=== PATIENT | female | born 1965 | race Caucasian/White ===

== ENCOUNTER 2018-06-01 21:47 | Emergency (ER) | payer SELFPAY ==
[2018-06-01] MEDS ORDERED: NORMAL SALINE 1000 ML 1,000 ML IV ONE (22:39)
[2018-06-01] MEDS ORDERED: ONDANSETRON HCL INJ/PF 4 MG/2 ML SDV IV ONE (22:47)
--- NOTE | 2018-06-01 22:48 | ER Document Report ---
ED General - General Chief Complaint: Abdominal Pain Stated Complaint: ABDOMINAL PAIN Time Seen by Provider: 06/01/18 22:22 Notes: Patient is a 53-year-old female with past medical history of anxiety, depression , who presents with multiple complaints. Patient apparently came to the emergency room and for complaint of abdominal pain but while in the lobby apparently attempted to stand up and fell to the ground. The patient and family are uncertain whether or not she has she lost consciousness. She was brought back to the emergency department due to this event. She denies any trauma was sustained during this fall. The patient is quite a tangential historian has difficulty expanding exactly what brought her to the emergency department today. She states that she was having some abdominal cramping diffusely throughout her abdomen earlier today with associated nausea but the pain is currently not present. She denies any vomiting. She is uncertain whether or not she has had similar pain in the past. Nothing improves or worsens that symptom. She denies any chest pain, shortness of breath, weakness or numbness. No headache or neck pain. No fever or constitutional symptoms. She states that she did not sleep at all last night, only ate breakfast this morning. She states that she has severe anxiety, feels very uncomfortable being by herself. TRAVEL OUTSIDE OF THE [place] IN LAST 30 DAYS: No - Related Data Allergies/Adverse Reactions: No Known Allergies Allergy (Verified 01/27/15 21:07) Past Medical History - General Information source: Patient, Relative - Social History Smoking Status: Never Smoker Frequency of alcohol use: None Drug Abuse: None Lives with: Family Family History: Reviewed & Not Pertinent Pulmonary Medical History: Reports: Hx Asthma, Hx Bronchitis Endocrine Medical History: Denies: Hx Diabetes Mellitus Type 1, Hx Diabetes Mellitus Type 2 Renal/ Medical History: Reports: Hx Kidney Stones. Denies: Hx Ectopic Musculoskeletal Medical History: Reports Hx Arthritis Psychiatric Medical History: Reports: Hx Bipolar Disorder - Immunizations Immunizations up to date: Yes Hx Diphtheria, Pertussis, Tetanus Vaccination: Yes Review of Systems - Review of Systems Notes: Constitutional: Negative for fever. HENT: Negative for sore throat. Eyes: Negative for visual changes. Cardiovascular: Negative for chest pain. Respiratory: Negative for shortness of breath. Gastrointestinal: Positive for abdominal pain and nausea Genitourinary: Negative for dysuria. Musculoskeletal: Negative for back pain. Skin: Negative for rash. Neurological: Negative for headaches, weakness or numbness. 10 point ROS negative except as marked above and in HPI. Physical Exam - Vital signs Vitals: Resp BP Pulse Ox 13 117/81 99 06/01/18 21:51 06/01/18 21:51 06/01/18 21:51 Interpretation: Normal Notes: PHYSICAL EXAMINATION: GENERAL: Well-appearing, well-nourished and in no acute distress. HEAD: Atraumatic, normocephalic. EYES: Pupils equal round and reactive to light, extraocular movements intact, sclera anicteric, conjunctiva are normal. ENT: nares patent, oropharynx clear without exudates. Mild dry mucous membranes. NECK: Normal range of motion, supple without lymphadenopathy LUNGS: Breath sounds clear to auscultation bilaterally and equal. No wheezes rales or rhonchi. HEART: Regular rate and rhythm without murmurs ABDOMEN: Soft, nontender, normoactive bowel sounds. No guarding, no rebound. No masses appreciated. EXTREMITIES: Normal range of motion, no pitting or edema. No cyanosis. NEUROLOGICAL: No focal neurological deficits. Moves all extremities spontaneously and on command. PSYCH: Somewhat sedated but answers all questions appropriately. Oriented 4. SKIN: Warm, Dry, normal turgor, no rashes or lesions noted. Course - Re-evaluation Re-evalutation: 06/01/18 22:47 Patient presents with multiple, vague complaints. She apparently had a syncopal episode versus an episode in which she chose to lie down on the ground while in the lobby and was brought back to the emergency department as a result of this. On my assessment the patient is somewhat groggy but wakes easily. She gives a tangential history but it appears that she did not sleep at all last night as she states that she was feeling very paranoid after taking a new medication, ziprasidone. She ate a small amount of breakfast but has not eaten anything else for the rest of the day. She apparently completed abdominal pain but to me states that she does not have any ongoing abdominal pain. She denies any chest pain, shortness of breath, or any other symptom other than feeling tired and "just not good". On examination she has no focal abdominal tenderness. No focal neurologic deficits. No evidence of trauma. Vitals within normal limits. Will proceed with basic labs, EKG, IV fluids, antiemetics and reassess the patient 06/02/18 01:32 Labs all unremarkable. Patient has asked for something to eat and is eating crackers and drinking without any difficulty. Vitals remain within normal limits. Patient is ambulated around the emergency room without any difficulty. At the time of discharge, the patient and her family expressed concerns about her ongoing severe anxiety and insomnia. I did offer trazodone upon discharge with which the patient was not satisfied. They requested to remain in the emergency department and speak with our behavioral health services in the morning due to the patient's difficulty sleeping, severe anxiety and paranoia about being by herself. She does not meet involuntary treatment criteria but will remain in the department to speak with our behavioral health services per her request. She is otherwise medically cleared. - Vital Signs Vital signs: Temp Pulse Resp BP Pulse Ox 17 107/65 97 06/02/18 02:01 06/02/18 02:01 06/02/18 02:01 - Laboratory Result Diagrams: 06/01/18 21:56 06/01/18 21:56 Laboratory results interpreted by me: 06/02/18 00:29 Ur Leukocyte Esterase TRACE H - EKG Interpretation by Me Additional EKG results interpreted by me: 06/02/18 01:32 Sinus rhythm. Rate 80. No ST elevations or depressions. QTC is 490. Discharge - Discharge Clinical Impression: Anxiety Syncope Qualifiers: Syncope type: unspecified Qualified Code(s): R55 - Syncope and collapse Medication adverse effect Qualifiers: Encounter type: initial encounter Qualified Code(s): T50.905A - Adverse effect of unspecified drugs, medicaments and biological substances, initial encounter Abdominal pain Qualifiers: Abdominal location: unspecified location Qualified Code(s): R10.9 - Unspecified abdominal pain Condition: Good Disposition: HOME, SELF-CARE Additional Instructions: You were seen today after an episode of passing out. Your EKG here is normal. At this time, we do not feel that your episode of passing out was from any life- threatening cause. Please drink plenty of fluids over the next several days. Return to emergency department if you have any further episodes of syncope, headache, weakness, numbness, chest pain, or shortness of breath. Please follow up closely with your primary care physician. You have been seen in the Emergency Department (ED) for abdominal pain. Your evaluation did not identify a clear cause of your symptoms but was generally reassuring. Please follow up with your doctor as soon as possible regarding today's emergent visit and the symptoms that are bothering you. Return to the ED if your abdominal pain worsens or fails to improve, you develop bloody vomiting, bloody diarrhea, you are unable to tolerate fluids due to vomiting, fever greater than 101, or other symptoms that concern you. Prescriptions: Trazodone HCl 100 mg PO QHS PRN #30 tablet PRN Reason: Referrals: KARON BENNETT MD [ACTIVE STAFF] - Follow up as needed
[2018-06-01 22:53] LABS: ALANINE AMINOTRANSFERASE 23 U/L (9-52); ALBUMIN 4.1 g/dL (3.5-5.0); ALKALINE PHOSPHATASE 67 U/L (38-126); ASPARTATE AMINO TRANSFERASE 24 U/L (14-36); BILIRUBIN,DIRECT 0.2 mg/dL (0.0-0.4); BILIRUBIN,TOTAL 0.3 mg/dL (0.2-1.3); BLOOD UREA NITROGEN 9 mg/dL (7-20); CALCIUM 8.8 mg/dL (8.4-10.2); CHLORIDE 106 mmol/L (98-107); GLUCOSE 94 mg/dL (75-110); LIPASE 75.8 U/L (23-300); POTASSIUM 3.9 mmol/L (3.6-5.0); TOTAL PROTEIN 7.2 g/dL (6.3-8.2)
[2018-06-01 22:57] LABS: ABSOLUTE EOSINOPHILS # (AUTO) 0.2 10^3/uL (0.0-0.6); ABSOLUTE LYMPHOCYTES (AUTO) 2.1 10^3/uL (0.5-4.7); ABSOLUTE MONOCYTES (AUTO) 0.6 10^3/uL (0.1-1.4); ABSOLUTE NEUT (AUTO) 3.8 10^3/uL (1.7-8.2); BASOPHILS % (AUTO) 0.6 % (0-2); EOSINOPHILS % (AUTO) 3.4 % (0-6); HEMATOCRIT 40.3 % (36.0-47.0); HEMOGLOBIN 13.7 g/dL (12.0-15.5); LYMPHOCYTES % (AUTO) 31.2 % (13-45); MEAN CORPUSCULAR HEMOGLOBIN 31.1 pg (27.0-33.4); MEAN CORPUSCULAR HGB CONC 33.9 g/dL (32.0-36.0); MEAN CORPUSCULAR VOLUME 92 fl (80-97); MONOCYTES % (AUTO) 8.6 % (3-13); PLATELET COUNT 345 10^3/uL (150-450); RED BLOOD COUNT 4.39 10^6/uL (3.72-5.28); SEGMENTED NEUTROPHILS % (AUTO) 56.2 % (42-78); TOTAL CELLS COUNTED % (AUTO) 100 %; WHITE BLOOD COUNT 6.7 10^3/uL (4.0-10.5)
[2018-06-01 23:07] LABS: CARBON DIOXIDE 28 mmol/L (22-30); SODIUM 139.4 mmol/L (137-145)
[2018-06-01 23:18] LABS: ANION GAP 10 (5-19)
[2018-06-02 00:55] LABS: APPEARANCE,URINE CLEAR; BILIRUBIN,URINE NEGATIVE (NEGATIVE); COLOR,URINE YELLOW; GLUCOSE, URINE NEGATIVE (NEGATIVE); KETONES,URINE NEGATIVE (NEGATIVE); LEUKOCYTE ESTERASE,URINE TRACE (NEGATIVE); NITRITE,URINE NEGATIVE (NEGATIVE); PROTEIN,URINE NEGATIVE (NEGATIVE); URINE SPECIFIC GRAVITY 1.006; UROBILINOGEN,URINE NEGATIVE mg/dL (<2.0)
--- NOTE | 2018-06-02 05:57 | EKG REPORT ---
SEVERITY:- BORDERLINE ECG - SINUS RHYTHM RIGHT AXIS DEVIATION BORDERLINE PROLONGED QT INTERVAL : Confirmed by: Beck Jones MD 02-Jun-2018 05:56:53
[2018-06-02 11:50] VITALS: BP 118/95
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
== END 2018-06-02 11:50 | disposition home or self-care (01) ==
LOC: ER 21:47
DX: F41.9 Anxiety disorder, unspecified (principal); R55 Syncope and collapse; T50.905A Adverse effect of unspecified drugs, medicaments and biological substances, initial encounter; R10.9 Unspecified abdominal pain; X58.XXXA Exposure to other specified factors, initial encounter; Z87.442 Personal history of urinary calculi
CPT/HCPCS: 93005; 99285; 96361; 96374; 36415; 83690; 85025; 80053; 81001; 84484; 93010; J2405; J7030

== ENCOUNTER 2020-06-13 02:44 | Emergency (ER) | payer MEDICAID ==
[2020-06-13 05:30] LABS: APPEARANCE,URINE CLEAR; BILIRUBIN,URINE NEGATIVE (NEGATIVE); COLOR,URINE COLORLESS; GLUCOSE, URINE NEGATIVE (NEGATIVE); KETONES,URINE NEGATIVE (NEGATIVE); LEUKOCYTE ESTERASE,URINE TRACE (NEGATIVE); NITRITE,URINE NEGATIVE (NEGATIVE); PROTEIN,URINE NEGATIVE (NEGATIVE); URINE SPECIFIC GRAVITY 1.001; UROBILINOGEN,URINE NEGATIVE mg/dL (<2.0)
[2020-06-13 05:30] LABS: ABSOLUTE EOSINOPHILS # (AUTO) 0.1 10^3/uL (0.0-0.6); ABSOLUTE LYMPHOCYTES (AUTO) 1.1 10^3/uL (0.5-4.7); ABSOLUTE MONOCYTES (AUTO) 0.5 10^3/uL (0.1-1.4); RED CELL DISTRIBUTION WIDTH 13.4 % (11.5-14.0); TOTAL CELLS COUNTED % (AUTO) 100 %
[2020-06-13 05:55] LABS: ABSOLUTE NEUT (AUTO) 4.2 10^3/uL (1.7-8.2); ALKALINE PHOSPHATASE 82 U/L (38-126); ANION GAP 5 (5-19); ASPARTATE AMINO TRANSFERASE 25 U/L (14-36); BASOPHILS % (AUTO) 0.8 % (0-2); BILIRUBIN,DIRECT 0.2 mg/dL (0.0-0.4); BILIRUBIN,TOTAL 0.6 mg/dL (0.2-1.3); BLOOD UREA NITROGEN 3 mg/dL (7-20); CALCIUM 9.3 mg/dL (8.4-10.2); CARBON DIOXIDE 24 mmol/L (22-30); CHLORIDE 108 mmol/L (98-107); GLUCOSE 121 mg/dL (75-110); HEMATOCRIT 37.1 % (36.0-47.0); HEMOGLOBIN 12.8 g/dL (12.0-15.5); LYMPHOCYTES % (AUTO) 18.2 % (13-45); MEAN CORPUSCULAR HEMOGLOBIN 30.5 pg (27.0-33.4); MEAN CORPUSCULAR HGB CONC 34.5 g/dL (32.0-36.0); MEAN CORPUSCULAR VOLUME 88 fl (80-97); MONOCYTES % (AUTO) 8.1 % (3-13); PLATELET COUNT 317 10^3/uL (150-450); POTASSIUM 4.1 mmol/L (3.6-5.0); SEGMENTED NEUTROPHILS % (AUTO) 71.9 % (42-78); TOTAL PROTEIN 6.6 g/dL (6.3-8.2); WHITE BLOOD COUNT 5.8 10^3/uL (4.0-10.5)
[2020-06-13] MEDS ORDERED: NORMAL SALINE 1000 ML 1,000 ML IV ONE (06:58)
--- NOTE | 2020-06-13 07:58 | EKG REPORT ---
SEVERITY:- ABNORMAL ECG - SINUS TACHYCARDIA VENTRICULAR PREMATURE COMPLEX FIRST DEGREE AV BLOCK BORDERLINE RIGHT AXIS DEVIATION : Confirmed by: Sergey Benedict 13-Jun-2020 07:57:24
--- NOTE | 2020-06-13 08:17 | RADIOLOGY REPORT (SQ) ---
EXAM DESCRIPTION: ACUTE ABDOMEN SERIES IMAGES COMPLETED DATE/TIME: 06/13/2020 7:53 am REASON FOR STUDY: diarrhea COMPARISON: Chest x-ray dated 04/07/2015 NUMBER OF VIEWS: Three views. TECHNIQUE: Frontal chest, supine abdomen and upright/decubitus abdomen radiographic images acquired. LIMITATIONS: None. FINDINGS: CHEST: Lungs clear of infiltrates. FREE AIR: None. No abnormal gas collections. BOWEL GAS PATTERN: Nonobstructive pattern. No dilated loops or air fluid levels. CALCIFICATIONS: No suspicious calcifications. HARDWARE: None in the abdomen. SOFT TISSUES: No gross mass or suggestion of organomegaly. BONES: No acute fracture. No worrisome bone lesions. OTHER: No other significant finding. IMPRESSION: NO RADIOGRAPHIC EVIDENCE FOR ACUTE ABDOMINAL DISEASE. TECHNICAL DOCUMENTATION: JOB ID: [id number] [employer]- All Rights Reserved Reading location - IP/workstation name: [email or web address]
--- NOTE | 2020-06-13 10:50 | ER Document Report ---
Entered by LOUIS LEROY SCRIBE 06/13/20 0651 Acting as scribe for:KIESHA VARNER MD ED General <DEEPIKA BURRIS - Last Filed: 06/13/20 14:42> - General Mode of Arrival: Ambulatory Information source: Patient TRAVEL OUTSIDE OF THE [place] IN LAST 30 DAYS: No - Related Data Home Medications: prozac, buspar, topamax, gabapentin <KIESHA VARNER - Last Filed: 06/13/20 14:57> - General Chief Complaint: Diarrhea Stated Complaint: MOUTH BURNING DIARRHEA SHAKES WEAKNESS Primary Care Provider: [facility] [Outside] - Follow up as needed (This was your request) [facility] [Outside] - Follow up as needed (You noted Dr. Lauren was previous provider and you liked this agency) [facility] [Outside] - Follow up as needed (You declined voluntary linkage saying you wanted [facility]) [facility] [Outside] - Follow up as needed [facility] [Outside] - Follow up as needed Notes: This 55 year old female patient with a history significant for borderline personality disorder, anxiety, and depression presents to the ED today with complaints of diarrhea. Patient states that she stopped taking her medications (Geodon, Prozac, Buspar) for "a while," and that when she received inpatient psychiatric treatment in [place] x2 weeks ago, the Geodon was discontinued and she was started on Gabapentin. She initially states that she had diarrhea prior to her admission that got worse after being placed on Gabapentin; now she reports that she was constipated prior and that she started having light brow n/green-colored loose stools TID that started there. She mentions that she did not complain of the diarrhea while in [place] because she thought it was "just the constipation clearing up." Denies black or bloody stools. Denies recent antibiotic treatment. She further reports generalized weakness, chills, dry mouth, skin flushing, and fluctuating blood pressure that started yesterday and got worse last night. Denies fever, pain, SI, or HI. (KIESHA VARNER) - Related Data Allergies/Adverse Reactions: No Known Allergies Allergy (Verified 01/27/15 21:07) Past Medical History - General Information source: Patient - Social History Smoking Status: Current Some Day Smoker Smoking Education Provided: No Family History: Reviewed & Not Pertinent Patient has suicidal ideation: No Patient has homicidal ideation: No Pulmonary Medical History: Reports: Hx Asthma, Hx Bronchitis Renal/ Medical History: Reports: Hx Kidney Stones Musculoskeletal Medical History: Reports Hx Arthritis Psychiatric Medical History: Reports: Hx Anxiety, Hx Bipolar Disorder, Hx Borderline Personality Disorder, Hx Depression Past Surgical History: Reports: None - Immunizations Immunizations up to date: Yes Hx Diphtheria, Pertussis, Tetanus Vaccination: Yes <KIESHA VARNER - Last Filed: 06/13/20 14:57> Review of Systems - Review of Systems Constitutional: See HPI, Chills, Weakness, Other - Fluctuating BP readings. denies: Fever EENT: See HPI, Other - Dry mouth Cardiovascular: No symptoms reported Respiratory: No symptoms reported Gastrointestinal: See HPI, Diarrhea. denies: Blood streaked bowels, Black stools Genitourinary: No symptoms reported Female Genitourinary: No symptoms reported Musculoskeletal: See HPI. denies: Muscle pain Skin: No symptoms reported Hematologic/Lymphatic: No symptoms reported Neurological/Psychological: See HPI. denies: Homicidal ideation, Suicidal ideation -: Yes All other systems reviewed and negative <KIESHA VARNER - Last Filed: 06/13/20 14:57> Physical Exam - General General appearance: Alert In distress: None - HEENT Head: Normocephalic, Atraumatic Eyes: Normal Pupils: PERRL Mucous membranes: Moist - Respiratory Respiratory status: No respiratory distress Chest status: Nontender Breath sounds: Normal Chest palpation: Normal - Cardiovascular Rhythm: Regular Heart sounds: Normal auscultation, S1 appreciated, S2 appreciated Murmur: No Friction rub: No Gallop: None auscultated - Abdominal Inspection: Normal Distension: No distension Bowel sounds: Normal Tenderness: Nontender - Abdomen soft Organomegaly: No organomegaly - Back Back: Normal, Nontender - Extremities General upper extremity: Normal inspection General lower extremity: Normal inspection. No: Edema - Neurological Neuro grossly intact: Yes Orientation: AAOx4 [place] Coma Scale Eye Opening: Spontaneous [place] Coma Scale Verbal: Oriented [place] Coma Scale Motor: Obeys Commands Christal Coma Scale Total: 15 - Psychological Associated symptoms: Normal affect, Normal mood - Skin Skin Temperature: Warm Skin Moisture: Dry Skin Color: Normal <KIESHA VARNER - Last Filed: 06/13/20 14:57> - Vital signs Vitals: Temp Pulse Resp BP Pulse Ox 98.3 F 116 H 16 147/95 H 96 06/13/20 02:59 06/13/20 02:59 06/13/20 02:59 06/13/20 02:59 06/13/20 02:59 Course - Laboratory Result Diagrams: 06/13/20 05:15 06/13/20 05:15 <DEEPIKA BURRIS - Last Filed: 06/13/20 14:42> - Laboratory Result Diagrams: 06/13/20 05:15 06/13/20 05:15 - Diagnostic Test Radiology reviewed: Image reviewed, Reports reviewed <KIESHA VARNER - Last Filed: 06/13/20 14:57> - Re-evaluation Re-evalutation: 06/13/20 09:01 Patient resting comfortably. Patient still complains of a dry mouth. Patient still complains that she is subsequent had diarrhea stool imminently. Thus far patient has not had a bowel movement over the past 7 hours of ED visit at this time. Discussed with patient her results of her laboratories urinalysis x-ray EKG and vital signs. Patient's vital signs are stable patient is not showing any signs of distress and patient is well-hydrated not showing any signs of dehydration tachycardia or mental status changes. Patient has no abdominal pain to complain of. Patient admitted that she feels anxious and depressed and states that this he wants to speak with our mental health team. Patient denies any suicidal homicidal ideation. 06/13/20 14:37 Spoke with Deepika from the Behavioral Health Team after she evaluated the patient. She initially disclosed that the patient wanted to go to [facility] voluntarily and that there probably won't be any bed availability until 1999 tonight. She now reports that the patient would like to go voluntarily to [facility] and that she is going to work on the discharge paperwork. Discharge instructions pending at this time. (KIESHA VARNER) - Vital Signs Vital signs: Temp Pulse Resp BP Pulse Ox 97.5 F 116 H 21 H 130/80 H 97 06/13/20 07:34 06/13/20 02:59 06/13/20 13:01 06/13/20 13:01 06/13/20 13:01 06/13/20 09:03 Current vital signs are stable patient is heart rate was 86 and systolic diastolic blood pressures within normal range pulse ox is 100% and no tachypnea. (KIESHA VARNER) - Laboratory Laboratory results interpreted by me: 06/13/20 06/13/20 04:45 05:15 Chloride 108 H BUN 3 L Glucose 121 H Ur Leukocyte Esterase TRACE H 06/13/20 09:04 06/13/20 05:15 06/13/20 05:15 MCV 88 fl (80-97) 06/13/20 05:15 MCH 30.5 pg (27.0-33.4) 06/13/20 05:15 MCHC 34.5 g/dL (32.0-36.0) 06/13/20 05:15 RDW 13.4 % (11.5-14.0) 06/13/20 05:15 Seg Neutrophils % 71.9 % (42-78) 06/13/20 05:15 Chloride 108 mmol/L (98-107) H 06/13/20 05:15 Carbon Dioxide 24 mmol/L (22-30) 06/13/20 05:15 Anion Gap 5 (5-19) 06/13/20 05:15 Est GFR ( Amer) > 60 (>60) 06/13/20 05:15 Glucose 121 mg/dL (75-110) H 06/13/20 05:15 Calcium 9.3 mg/dL (8.4-10.2) 06/13/20 05:15 Total Bilirubin 0.6 mg/dL (0.2-1.3) 06/13/20 05:15 AST 25 U/L (14-36) 06/13/20 05:15 Alkaline Phosphatase 82 U/L (38-126) 06/13/20 05:15 Total Protein 6.6 g/dL (6.3-8.2) 06/13/20 05:15 Albumin 4.0 g/dL (3.5-5.0) 06/13/20 05:15 Lipase 62.8 U/L (23-300) 06/13/20 05:15 Urine Color COLORLESS 06/13/20 04:45 Urine Appearance CLEAR 06/13/20 04:45 Urine pH 6.0 (5.0-9.0) 06/13/20 04:45 Ur Specific [place] 1.001 06/13/20 04:45 Urine Protein NEGATIVE mg/dL (NEGATIVE) 06/13/20 04:45 Urine Glucose (UA) NEGATIVE mg/dL (NEGATIVE) 06/13/20 04:45 Urine Ketones NEGATIVE mg/dL (NEGATIVE) 06/13/20 04:45 Urine Blood NEGATIVE (NEGATIVE) 06/13/20 04:45 Urine Nitrite NEGATIVE (NEGATIVE) 06/13/20 04:45 Ur Leukocyte Esterase TRACE (NEGATIVE) H 06/13/20 04:45 Urine WBC (Auto) 0 /HPF 06/13/20 04:45 Urine RBC (Auto) 2 /HPF 06/13/20 04:45 Review of patient's laboratory shows no acute process. (KIESHA VARNER) - Diagnostic Test Radiology results interpreted by me: 06/13/20 09:06 Acute Abdomen Series 06/13/20 06:58 IMPRESSION: NO RADIOGRAPHIC EVIDENCE FOR ACUTE ABDOMINAL DISEASE. Acute abdominal series chest and two-view abs abdominal view shows no acute process no obstruction (KIESHA VARNER) - EKG Interpretation by Me Additional EKG results interpreted by me: 06/13/20 09:12 Twelve-lead EKG shows sinus tachycardia rate of 103 occasional PVCs noted. Intervals of the [place] intervals first-degree AV block QRS and QT intervals within normal limits borderline right axis deviation. No acute ST changes to suggest OK. (KIESHA VARNER) Discharge <DEEPIKA BURRIS - Last Filed: 06/13/20 14:42> <KIESHA VARNER - Last Filed: 06/13/20 14:57> - Discharge Clinical Impression: Anxiety and depression, Diarrhea, Suicidal ideation Condition: Stable Disposition: HOME, SELF-CARE Additional Instructions: You have been evaluated by both medical and behavioral health teams for medical complaints you were concerned were related to recent psychiatric medication adjustments, increased depression and anxiety, and suicidal ideation. You have been deemed appropriate for discharge. While in the emergency department you received the following services: Medical screening and assessment, nursing services, dietary services, pharmacological services, one-on-one counseling and/or psychotherapy, environmental services, and continuous observation by a patient health safety engineer. Please take your medications as prescribed and do not stop these medications without discussion with your prescribing physician. Anxiety The physician feels that some of your health problems are being caused by anxiety. Anxiety affects your health in many ways. Anxiety alone can cause palpitations, sweats, chest pains, abdominal pains, shortness of breath, and headaches. It contributes to ulcer disease, high blood pressure, irritable bowel syndrome, and has been shown to cause flare-ups of many other diseases. Anxiety is not a simple disorder to treat. If the anxiety is due to recent life stresses, you may simply need time to "work through" the changes. If the anxiety is due to an underlying unhappiness with yourself or due to psychiatric disturbance, professional help will be needed. Your physician can refer you for further help if needed. Anti-anxiety medication is occasionally given if the stress is acute or if you are having trouble sleeping. Chronic or frequent use of these medications is not a good idea because the body becomes reliant on it, preventing you from dealing with life's normal stresses. DEPRESSION: Your evaluation reveals that you have mental depression. While symptoms may be vague, they often include disturbance of sleep, fatigue, loss of appetite, and general loss of interest in life. While depression may be a side effect of drugs, or a reaction to a major change in your life, many cases have no known cause. If depression is acute, and related to a major loss in your life, you can expect it to clear completely with time. If you have been depressed a long time, are prone to repeated bouts of depression or low mood, or have been thinking of suicide, get help. Depression can be treated with anti-depressant medication and counselling. Long-term depression will often take a few weeks to clear, even with appropriate medication. Follow-up care is important. SUICIDAL IDEATION: Suicidal ideation is a common medical term for thoughts about suicide, which may be as detailed as a formulated plan, without the suicidal act itself. Although most people who undergo suicidal ideation do not commit suicide, some go on to make suicide attempts. The range of suicidal ideation varies greatly from fleeting to detailed planning, role playing, and unsuccessful attempts. While thoughts about suicide are common, most people do not carry out serious actions to commit suicide. Based upon your evaluation and discussion with you, we do not believe you are currently at risk to act upon your thoughts of suicide. You have agreed to return to the Emergency Department, at any time, if you feel inclined to act upon your suicidal thoughts. FOLLOW-UP CARE: You are recommended to follow up with your current outpatient psychiatric medication provider, you can choose another provider (provided local mental health resource sheet), you declined voluntary linkage to [facility] saying your wanted [facility]. You have been provided contact information for [facility] as well, in addition to both local mobile crisis numbers. If you experience worsening or a significant change in your symptoms notify your physician immediately, utilize mobile crisis or return to the Emergency Department at any time for re- evaluation. Referrals: [facility] [Outside] - Follow up as needed [facility] [Outside] - Follow up as needed [facility] [Outside] - Follow up as needed (This was your request) [facility] [Outside] - Follow up as needed (You declined voluntary linkage saying you wanted [facility]) [facility] [Outside] - Follow up as needed (You noted Dr. Lauren was previous provider and you liked this agency) I personally performed the services described in the documentation, reviewed and edited the documentation which was dictated to the scribe in my presence, and it accurately records my words and actions.
[2020-06-13 15:06] VITALS: BP 121/79
== END 2020-06-13 15:07 | disposition home or self-care (01) ==
LOC: ER 02:44
DX: R45.851 Suicidal ideations (principal); F32.9 Major depressive disorder, single episode, unspecified; F41.9 Anxiety disorder, unspecified; R19.7 Diarrhea, unspecified; R53.1 Weakness; F17.200 Nicotine dependence, unspecified, uncomplicated
CPT/HCPCS: 93005; 99285; 96360; 36415; 83690; 85025; 80053; 81001; 74022; 93010; J7030